=== PATIENT | female | born 1995 | race Hispanic/Latino ===

== ENCOUNTER 2019-03-18 18:50 | Emergency (ER) | payer OTHER ==
[2019-03-18 19:56] LABS: Absolute Lymphocytes (CBC) 1.7 K/uL (0.7-4.9); Basophils % 0.6 % (0-1.3); Eosinophils % 1.8 % (0-4.4); Hematocrit 38.3 % (36.0-45.0); Lymphocytes % 16.3 % (15.3-44.8); MPV 9.5 fL (7.6-11.3); Monocytes % 4.9 % (3.3-12.3); RBC Red Blood Cell Count 4.36 M/uL (3.86-4.86)
--- NOTE | 2019-03-18 20:16 | RAD REPORT ---
EXAM DESCRIPTION: US - Transvaginal OB - 03/18/2019 8:08 pm CLINICAL HISTORY: with abdominal pain COMPARISON: None. FINDINGS: The uterus measures 10 x 5 x 7 centimeters. A gestational sac is present within the endom etrium. Within this is a yolk sac and pole with a crown-rump length 1.5 centimeters. Cardiac ac tivity 175 beats per minute. Gestational sac appears normal Right and left ovary normal in size and echotexture An adnexal mass is not noted. No significant free fluid is seen. IMPRESSION: Single live intrauterine with an estimated gestational age 7 weeks 6 days SAKINA October 29, 2019
[2019-03-18 20:18] LABS: Urine Amorphous Sediment 2+ /HPF (NONE SEEN); Urine Bacteria 20-50 /HPF (<20); Urine Culture Reflex Order REFLEXED; Urine Mucus 2+ /HPF (NONE SEEN); Urine RBC <5 /HPF (NONE SEEN)
[2019-03-18 20:45] LABS: BUN Blood Urea Nitrogen 9 mg/dL (7-18); Bicarbonate 25 mmol/L (21-32); Glucose Level 104 mg/dL (74-106); HCG, Quantitative 59891 mIU/mL (1-3); Potassium 3.6 mmol/L (3.5-5.1); Sodium Level 140 mmol/L (136-145)
[2019-03-18 20:51] LABS: Urine Blood NEGATIVE (NEG); Urine Glucose NEGATIVE (NEG); Urine Protein NEGATIVE (NEG); Urine Specific Gravity 1.025 (1.005-1.030); Urine pH 6.5 (5.0-7.0)
[2019-03-18] MEDS ORDERED: CEFTRIAXONE/SWI 1gm 1 GM/10 ML SYR ONE (21:07)
--- NOTE | 2019-03-18 21:16 | ER ---
Nurse's Notes [facility] Name: Beronica Frazier Age: 24 yrs Sex: Female : 1995 Arrival Date: 03/18/2019 Time: 18:54 Bed 27 Private MD: Diagnosis: Urinary tract infection, site not specified Presentation: 03/18 19:04 Presenting complaint: Patient states: Reports being 8 wks , has not seen OB. tl2 Reports lower abdominal pain x 1 week, fever and vomiting. Denies vaginal bleeding. Transition of care: patient was not received from another setting of care. Onset of symptoms was March 11, 2019. Risk Assessment: Do you want to hurt yourself or someone else? Patient reports no desire to harm self or others. Initial Sepsis Screen: Does the patient meet any 2 criteria? No. Patient's initial sepsis screen is negative. Does the patient have a suspected source of infection? No. Patient's initial sepsis screen is negative. Care prior to arrival: None. 19:04 Method Of Arrival: Ambulatory tl2 19:04 Acuity: SUDHAKAR 3 tl2 ORDER ADMINISTRATOR: 19:05 LMP 01/17/2019 tl2 Historical: - Allergies: 19:05 No Known Allergies; tl2 - Home Meds: 19:05 None [Active]; tl2 - PMHx: 19:05 None; tl2 - PSHx: 19:05 None; tl2 - Immunization history:: Adult Immunizations up to date. - Social history:: Smoking status: Patient/guardian denies using tobacco, the patient reports quitting approximately .2 years ago. - Ebola Screening: : No symptoms or risks identified at this time. Screenin:07 Abuse screen: Denies threats or abuse. Denies injuries from another. Nutritional lp1 screening: No deficits noted. Tuberculosis screening: No symptoms or risk factors identified. Fall Risk None identified. Assessment: 19:05 General: Appears in no apparent distress. Behavior is calm, cooperative, appropriate lp1 for age. Pain: Complains of pain in suprapubic area, right inguinal area and left inguinal area Quality of pain is described as aching. Neuro: Level of Consciousness is awake, alert, obeys commands. Cardiovascular: Patient's skin is warm and dry. Respiratory: Respiratory effort is even, unlabored. GI: Abdomen is non-distended, Bowel sounds present X 4 quads. Abdomen is tender to palpation in suprapubic area Reports vomiting. : Denies burning with urination. EENT: No signs and/or symptoms were reported regarding the EENT system. Derm: Skin is pink, warm \T\ dry. Musculoskeletal: No deficits noted. 20:30 Reassessment: Patient appears in no apparent distress at this time. No changes from lp1 previously documented assessment. Patient and/or family updated on plan of care and expected duration. Pain level reassessed. Vital Signs: 19:05 BP 125 / 85; Pulse 76; Resp 18; Temp 98.5(O); Pulse Ox 97% on R/A; Weight 81.65 kg; tl2 Height 5 ft. 4 in. (162.56 cm); Pain 5/10; 21:00 BP 115 / 72; Pulse 80; Resp 16; Pulse Ox 100% on R/A; lp1 19:05 Body Mass Index 30.90 (81.65 kg, 162.56 cm) tl2 ED Course: 18:54 Patient arrived in ED. mr 19:01 Param Perales, SERGIO is PHCP. pm1 19:01 Surya Eli MD is Attending Physician. pm1 19:04 Triage completed. tl2 19:05 Jacqueline Lea, DEWEY is Primary Nurse. lp1 19:05 Arm band placed on right wrist. tl2 19:07 Patient has correct armband on for positive identification. lp1 19:35 Inserted saline lock: 20 gauge in right antecubital area, using aseptic technique. lp1 Blood collected. 20:08 US Transvaginal Ob In Process Unspecified. EDMS 21:04 No provider procedures requiring assistance completed. lp1 21:22 IV discontinued, No redness/swelling at site. Pressure dressing applied. lp1 Administered Medications: 20:55 Drug: Rocephin 1 grams Route: IV; Rate: calculated rate; Site: right antecubital; lp1 21:22 Follow up: Response: No adverse reaction; IV Status: Completed infusion; IV Intake: [id number] Intake: 21:22 IV: 10ml; Total: 10ml. lp1 Outcome: 21:15 Discharge ordered by . pm1 21:23 Discharged to home ambulatory, with family. lp1 21:23 Condition: good 21:23 Discharge instructions given to patient, significant other, Instructed on discharge instructions, follow up and referral plans. medication usage, Demonstrated understanding of instructions, follow-up care, medications, Prescriptions given X 2. 21:23 Patient left the ED. lp1 Signatures: Dispatcher [employer] ANAI GardunoZena lozada VenuJacqueline RN RN lp1 Param Perales NP SURVEY AND MAPPING TECHNICIAN pm1 Michelle Parekh RN RN tl2
--- NOTE | 2019-03-18 21:16 | EDPHYS ---
Physician Documentation [facility] Name: Beronica Frazier Age: 24 yrs Sex: Female : 1995 Arrival Date: 03/18/2019 Time: 18:54 Bed 27 Private MD: ED Physician Surya Eli HPI: 03/18 20:18 This 24 yrs old Female presents to ER via Ambulatory with complaints of 8 wks pm1 , Abdominal Pain. 20:18 The patient presents with pelvic pain. Onset: The symptoms/episode began/occurred 1 pm1 week(s) ago. Modifying factors: The symptoms are alleviated by nothing, the symptoms are aggravated by nothing. Associated signs and symptoms: Pertinent positives: nausea, vomiting, subjective fever. Severity of symptoms: in the emergency department the symptoms are unchanged. The patient is sexually active. The patient has not experienced similar symptoms in the past. The patient has not recently seen a physician. FORM [employer]TER [employer] [address] FORMS: 19:05 LMP 01/17/2019 tl2 Historical: - Allergies: 19:05 No Known Allergies; tl2 - Home Meds: 19:05 None [Active]; tl2 - PMHx: 19:05 None; tl2 - PSHx: 19:05 None; tl2 - Immunization history:: Adult Immunizations up to date. - Social history:: Smoking status: Patient/guardian denies using tobacco, the patient reports quitting approximately .2 years ago. - Ebola Screening: : No symptoms or risks identified at this time. ROS: 20:18 Positive for flank pain, Negative for burning with urination, vaginal bleeding, pm1 vaginal discharge. 20:18 Constitutional: Negative for fever, chills, and weight loss, Eyes: Negative for injury, pain, redness, and discharge, ENT: Negative for injury, pain, and discharge, Neck: Negative for injury, pain, and swelling, Cardiovascular: Negative for chest pain, palpitations, and edema, Respiratory: Negative for shortness of breath, cough, wheezing, and pleuritic chest pain. 20:18 MS/Extremity: Negative for injury and deformity, Skin: Negative for injury, rash, and discoloration, Neuro: Negative for headache, weakness, numbness, tingling, and seizure. 20:18 Abdomen/GI: Positive for nausea, constipation, Negative for vomiting, diarrhea. 20:18 Abdomen/GI: Positive for abdominal pain, of the suprapubic area. pm1 Exam: 20:18 Constitutional: This is a well developed, well nourished patient who is awake, alert, pm1 and in no acute distress. Head/Face: Normocephalic, atraumatic. Eyes: Pupils equal round and reactive to light, extra-ocular motions intact. Lids and lashes normal. Conjunctiva and sclera are non-icteric and not injected. Cornea within normal limits. Periorbital areas with no swelling, redness, or edema. ENT: Nares patent. No nasal discharge, no septal abnormalities noted. Tympanic membranes are normal and external auditory canals are clear. Oropharynx with no redness, swelling, or masses, exudates, or evidence of obstruction, uvula midline. Mucous membranes moist. Neck: Trachea midline, no thyromegaly or masses palpated, and no cervical lymphadenopathy. Supple, full range of motion without nuchal rigidity, or vertebral point tenderness. No Meningismus. Chest/axilla: Normal chest wall appearance and motion. Nontender with no deformity. No lesions are appreciated. Cardiovascular: Regular rate and rhythm with a normal S1 and S2. No gallops, murmurs, or rubs. Normal PMI, no JVD. No pulse deficits. Respiratory: Lungs have equal breath sounds bilaterally, clear to auscultation and percussion. No rales, rhonchi or wheezes noted. No increased work of breathing, no retractions or nasal flaring. Abdomen/GI: Soft, non-tender, with normal bowel sounds. No distension or tympany. No guarding or rebound. No evidence of tenderness throughout. Back: No spinal tenderness. No costovertebral tenderness. Full range of motion. Skin: Warm, dry with normal turgor. Normal color with no rashes, no lesions, and no evidence of cellulitis. MS/ Extremity: Pulses equal, no cyanosis. Neurovascular intact. Full, normal range of motion. 20:18 Neuro: Orientation: is normal, Motor: is normal. Vital Signs: 19:05 BP 125 / 85; Pulse 76; Resp 18; Temp 98.5(O); Pulse Ox 97% on R/A; Weight 81.65 kg; tl2 Height 5 ft. 4 in. (162.56 cm); Pain 5/10; 21:00 BP 115 / 72; Pulse 80; Resp 16; Pulse Ox 100% on R/A; lp1 19:05 Body Mass Index 30.90 (81.65 kg, 162.56 cm) tl2 MDM: 19:03 Patient medically screened. pm1 20:08 ED course: 7 week 6 days IUP with 175 bpm fht's. pm1 21:14 Data reviewed: vital signs. Data interpreted: Pulse oximetry: on room air is 100 %. pm1 Interpretation: normal. Counseling: I had a detailed discussion with the patient and/or guardian regarding: the historical points, exam findings, and any diagnostic results supporting the discharge/admit diagnosis, lab results, radiology results, the need for outpatient follow up, to return to the emergency department if symptoms worsen or persist or if there are any questions or concerns that arise at home. 03/18 19:20 Order name: Quantitative Hcg; Complete Time: 20:48 pm03/18 19:20 Order name: Abo/rh Typing; Complete Time: 20:48 pm03/18 19:20 Order name: Basic Metabolic Panel; Complete Time: 20:48 pm03/18 19:20 Order name: CBC with Diff; Complete Time: 20:00 pm03/18 19:21 Order name: Urine Dipstick--Ancillary (enter results); Complete Time: 21:13 2 03/18 19:21 Order name: Urine --Ancillary (enter results); Complete Time: 21:13 03/18 19:02 Order name: Urine Dipstick-Ancillary (obtain specimen); Complete Time: 19:23 pm03/18 19:02 Order name: Urine Test (obtain specimen); Complete Time: 19:23 pm03/18 19:20 Order name: IV Saline Lock; Complete Time: 19:49 pm03/18 19:20 Order name: Labs collected and sent; Complete Time: 19:49 pm03/18 19:20 Order name: US Transvaginal Ob; Complete Time: 20:18 pm03/18 19:33 Order name: Urine Microscopic Only; Complete Time: 20:48 pm03/18 20:20 Order name: Urine Culture EDME 03/18 19:20 Order name: NPO; Complete Time: 19:49 pm1 Administered Medications: 20:55 Drug: Rocephin 1 grams Route: IV; Rate: calculated rate; Site: right antecubital; lp1 21:22 Follow up: Response: No adverse reaction; IV Status: Completed infusion; IV Intake: [id number] Disposition: 03/19 16:45 Co-signature as Attending Physician, Surya Eli MD. Disposition: 03/18/19 21:15 Discharged to Home. Impression: Urinary tract infection, site not specified. - Condition is Stable. - Discharge Instructions: and Urinary Tract Infection. - Prescriptions for Macrobid 100 mg Oral Capsule - take 1 capsule by ORAL route every 12 hours for 10 days; 20 capsule. promethazine 25 mg Oral Tablet - take 1 tablet by ORAL route every 6 hours As needed; 20 tablet. - Medication Reconciliation Form, Thank You Letter, Antibiotic Education, Prescription Opioid Use form. - Follow up: Emergency Department; When: As needed; Reason: Worsening of condition. Follow up: Private Physician; When: 2 - 3 days; Reason: Recheck today's complaints, Continuance of care, Re-evaluation by your physician. - Problem is new. - Symptoms have improved. Signatures: Dispatcher [employer] EDMS Jacqueline Lea RN RN lp1 Param Perales NP PUSHER RUNNER pm1 Michelle Parekh RN RN tl2 Surya Eli MD MD Corrections: (The following items were deleted from the chart) 03/18 21:23 21:15 03/18/2019 21:15 Discharged to Home. Impression: Urinary tract infection, site lp1 not specified. Condition is Stable. Forms are Medication Reconciliation Form, Thank You Letter, Antibiotic Education, Prescription Opioid Use. Follow up: Emergency Department; When: As needed; Reason: Worsening of condition. Follow up: Private Physician; When: 2 - 3 days; Reason: Recheck today's complaints, Continuance of care, Re-evaluation by your physician. Problem is new. Symptoms have improved. pm1
== END 2019-03-18 21:23 | disposition home or self-care (01) ==
LOC: ER 18:50
DX: O23.41 Unspecified infection of urinary tract in pregnancy, first trimester (principal); Z3A.01 Less than 8 weeks gestation of pregnancy
CPT/HCPCS: 36415; 76817; 80048; 81003; 81015; 81025; 84702; 85025; 86900; 86901; 87086; 87088; 96365; 99284; J0696

== ENCOUNTER 2019-04-13 12:54 | Emergency (ER) | payer OTHER ==
[2019-04-13 14:03] LABS: Urine Blood NEGATIVE (NEG); Urine Glucose NEGATIVE (NEG); Urine Protein TRACE (NEG); Urine Specific Gravity 1.025 (1.005-1.030)
[2019-04-13] MEDS ORDERED: ACETAMINOPHEN 500 MG TAB ONE (14:06)
[2019-04-13 14:17] LABS: Absolute Lymphocytes (CBC) 1.2 K/uL (0.7-4.9); Basophils % 0.1 % (0-1.3); Hematocrit 34.8 % (36.0-45.0); Lymphocytes % 14.7 % (15.3-44.8); MPV 9.2 fL (7.6-11.3); RBC Red Blood Cell Count 3.97 M/uL (3.86-4.86)
--- NOTE | 2019-04-13 14:29 | RAD REPORT ---
EXAM DESCRIPTION: US - 1St Trimest Single 1St Fetus - 04/13/2019 2:06 pm CLINICAL HISTORY: fall, cramping;Abd pain COMPARISON: No comparisons FINDINGS: A single gestational sac is seen within the uterus. The shape of the sac is within normal limits for gestational age. Within the sac is a single pole with crown-rump length of 4.3 cm, c orrelating to estimated gestational age of 11 weeks 1 day. Estimated date of delivery is 11/01/2019. Heart rate is 166 BPM. The placenta is not yet developed due to early gestational age. The maternal adnexa and ovaries are within normal limits. Normal Doppler blood flow was demonstrated to both ovaries. IMPRESSION: Single live early intrauterine gestation with estimated gestational age of 11 weeks 1 da y, SAKINA 11/01/2019. No trauma related abnormality detected.
[2019-04-13 14:31] LABS: BUN Blood Urea Nitrogen 6 mg/dL (7-18); Bicarbonate 24 mmol/L (21-32); Glucose Level 106 mg/dL (74-106); Potassium 3.5 mmol/L (3.5-5.1); Sodium Level 140 mmol/L (136-145)
[2019-04-13 14:58] LABS: HCG, Quantitative 50284 mIU/mL (1-3)
--- NOTE | 2019-04-13 15:43 | ER ---
Nurse's Notes [facility] Name: Beronica Frazier Age: 24 yrs Sex: Female : 12/26/1994 Arrival Date: 04/13/2019 Time: 12:56 Bed 27 Private MD: Diagnosis: Abdominal and pelvic pain; related conditions, unspecified;11 weeks gestation of ;Other slipping, tripping and stumbling and falls Presentation: 04/13 13:03 Presenting complaint: Patient states: Pt reports she was taking a shower three hours ss ago when she slipped and fell. C/o pain to L side of body and is concerned because she is 12 weeks and is having mild cramping. Denies vaginal bleeding. Transition of care: patient was not received from another setting of care. Onset of symptoms was April 13, 2019. Risk Assessment: Do you want to hurt yourself or someone else? Patient reports no desire to harm self or others. Initial Sepsis Screen: Does the patient meet any 2 criteria? No. Patient's initial sepsis screen is negative. Does the patient have a suspected source of infection? No. Patient's initial sepsis screen is negative. Care prior to arrival: None. 13:03 Method Of Arrival: Ambulatory ss 13:03 Acuity: SUDHAKAR 3 ss REMOTE SENSING SPECIALIST: 16:11 lmp unknown mg2 Historical: - Allergies: 13:04 No Known Allergies; ss - Home Meds: 13:04 None [Active]; ss - PMHx: 13:04 None; ss - PSHx: 13:04 None; ss - Immunization history:: Adult Immunizations unknown. - Social history:: Smoking status: Patient/guardian denies using tobacco. - Ebola Screening: : Patient denies exposure to infectious person Patient denies travel to an Ebola-affected area in the 21 days before illness onset. Screenin:14 Abuse screen: Denies threats or abuse. Denies injuries from another. Nutritional mg2 screening: No deficits noted. Tuberculosis screening: No symptoms or risk factors identified. Fall Risk Fall in past 12 months (25 points). Assessment: 13:05 Reassessment: Patient is eating snack during triage and states that she is just worried ss about the baby. 13:36 General: Appears in no apparent distress. comfortable, Behavior is calm, cooperative. mg2 Pain: Complains of pain in abdomen Pain does not radiate. Pain currently is 2 out of 10 on a pain scale. Quality of pain is described as crampy, Pain began suddenly, 3 hours ago. Is intermittent. Neuro: Level of Consciousness is awake, alert, obeys commands, Oriented to person, place, time, situation. Cardiovascular: Capillary refill < 3 seconds Patient's skin is warm and dry. Respiratory: Airway is patent Respiratory effort is even, unlabored, Respiratory pattern is regular, symmetrical. GI: Reports lower abdominal pain. : Urine is clear. EENT: No signs and/or symptoms were reported regarding the EENT system. Derm: Skin is intact, is healthy with good turgor, Skin is pink, warm \T\ dry. normal. Musculoskeletal: Circulation, motion, and sensation intact. Capillary refill < 3 seconds. 16:12 Reassessment: Patient denies pain at this time. Patient states feeling better. mg2 Vital Signs: 13:04 BP 117 / 68; Pulse 88; Resp 14; Temp 97.8(TE); Pulse Ox 99% on R/A; Weight 86.64 kg; ss Height 5 ft. 5 in. (165.10 cm); Pain 6/10; 15:00 BP 115 / 70; Pulse 80; Resp 18; Pulse Ox 100% on R/A; mg2 16:11 BP 120 / 78; Pulse 80; Resp 18; Temp 98; Pulse Ox 100% on R/A; Pain 0/10; mg2 13:04 Body Mass Index 31.78 (86.64 kg, 165.10 cm) ss Vitals: 13:26 Heart Tones 160 bpm. mg2 ED Course: 12:56 Patient arrived in ED. as 13:04 Triage completed. ss 13:04 Arm band placed on right wrist. ss 13:13 Mick Shirley, DEWEY is Primary Nurse. mg2 13:34 Sameer Melgar MD is Attending Physician. kdr 13:37 Patient has correct armband on for positive identification. mg2 13:37 No provider procedures requiring assistance completed. mg2 14:10 1St Trimest Single 1St Fetus In Process Unspecified. EDMS 14:12 Inserted saline lock: 20 gauge in right antecubital area, using aseptic technique. mg2 Blood collected. by BANG Horta TEch. 16:12 IV discontinued, intact, bleeding controlled, No redness/swelling at site. Pressure mg2 dressing applied. Administered Medications: No medications were administered Outcome: 15:42 Discharge ordered by . kdr 16:12 Discharged to home ambulatory, with family. mg2 16:12 Condition: stable 16:12 Discharge instructions given to patient, family, Instructed on discharge instructions, follow up and referral plans. Demonstrated understanding of instructions, follow-up care. 16:13 Patient left the ED. mg2 Signatures: Dispatcher [employer] EDMS Sameer Melgar MD MD kdr Jenny Wang Shelby, RN RN Mick Shirley RN RN mg2 Corrections: (The following items were deleted from the chart) 14:12 13:37 Patient did not have IV access during this emergency room visit. mg2 mg2
--- NOTE | 2019-04-13 15:43 | EDPHYS ---
Physician Documentation [facility] Name: Beronica Frazier Age: 24 yrs Sex: Female : 12/26/1994 Arrival Date: 04/13/2019 Time: 12:56 Bed 27 Private MD: ED Physician Sameer Melgar HPI: 04/13 15:46 This 24 yrs old Female presents to ER via Ambulatory with complaints of Fall kdr Injury. 15:46 Details of fall: The patient fell from an upright position, while standing. Onset: The kdr symptoms/episode began/occurred acutely, just prior to arrival. Associated injuries: The patient sustained injury to the abdomen. 15:47 Associated injuries: The patient sustained injury to the abdomen, specifically the kdr posterior aspect of left lateral abdomen and anterior aspect of left lateral abdomen. Severity of symptoms: At their worst the symptoms were mild, in the emergency department the symptoms are unchanged. The patient has not experienced similar symptoms in the past. The patient has been recently seen by a physician: the patient's primary care provider. 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 - Social history:: Smoking status: Patient/guardian denies using tobacco. - Ebola Screening: : Patient denies exposure to infectious person Patient denies travel to an Ebola-affected area in the 21 days before illness onset. ROS: 15:47 Constitutional: Negative for fever, chills, and weight loss, Eyes: Negative for injury, kdr pain, redness, and discharge, Neck: Negative for injury, pain, and swelling, Cardiovascular: Negative for chest pain, palpitations, and edema, Respiratory: Negative for shortness of breath, cough, wheezing, and pleuritic chest pain, Back: Negative for injury and pain, : Negative for injury, bleeding, discharge, and swelling, MS/Extremity: Negative for injury and deformity, Skin: Negative for injury, rash, and discoloration, Neuro: Negative for headache, weakness, numbness, tingling, and seizure activity. Psych: Negative for depression, anxiety, suicide ideation, homicidal ideation, and hallucinations, Allergy/Immunology: Negative for hives, rash, and allergies, Endocrine: Negative for neck swelling, polydipsia, polyuria, polyphagia, and marked weight changes, Hematologic/Lymphatic: Negative for swollen nodes, abnormal bleeding, and unusual bruising. 15:47 Abdomen/GI: Positive for abdominal pain, of the anterior aspect of left lateral abdomen, Negative for nausea, vomiting, and diarrhea, abdominal distension, anorexia, dysphagia, hematemesis. Exam: 15:47 Constitutional: This is a well developed, well nourished patient who is awake, alert, kdr and in no acute distress. Head/Face: Normocephalic, atraumatic. Eyes: Pupils equal round and reactive to light, extra-ocular motions intact. Lids and lashes normal. Conjunctiva and sclera are non-icteric and not injected. Cornea within normal limits. Periorbital areas with no swelling, redness, or edema. Neck: Trachea midline, no thyromegaly or masses palpated, and no cervical lymphadenopathy. Supple, full range of motion without nuchal rigidity, or vertebral point tenderness. No Meningismus. Chest/axilla: Normal chest wall appearance and motion. Nontender with no deformity. No lesions are appreciated. Cardiovascular: Regular rate and rhythm with a normal S1 and S2. No gallops, murmurs, or rubs. Normal PMI, no JVD. No pulse deficits. Respiratory: Lungs have equal breath sounds bilaterally, clear to auscultation and percussion. No rales, rhonchi or wheezes noted. No increased work of breathing, no retractions or nasal flaring. Back: No spinal tenderness. No costovertebral tenderness. Full range of motion. Skin: Warm, dry with normal turgor. Normal color with no rashes, no lesions, and no evidence of cellulitis. MS/ Extremity: Pulses equal, no cyanosis. Neurovascular intact. Full, normal range of motion. Neuro: Awake and alert, GCS 15, oriented to person, place, time, and situation. Cranial nerves II-XII grossly intact. Motor strength 5/5 in all extremities. Sensory grossly intact. Cerebellar exam normal. Normal gait. Psych: Awake, alert, with orientation to person, place and time. Behavior, mood, and affect are within normal limits. 15:47 Abdomen/GI: Inspection: abdomen appears normal, Bowel sounds: active, Palpation: soft, mild abdominal tenderness, in the anterior aspect of left lateral abdomen. Vital Signs: 13:04 BP 117 / 68; Pulse 88; Resp 14; Temp 97.8(TE); Pulse Ox 99% on R/A; Weight 86.64 kg; ss Height 5 ft. 5 in. (165.10 cm); Pain 6/10; 15:00 BP 115 / 70; Pulse 80; Resp 18; Pulse Ox 100% on R/A; mg2 16:11 BP 120 / 78; Pulse 80; Resp 18; Temp 98; Pulse Ox 100% on R/A; Pain 0/10; mg2 13:04 Body Mass Index 31.78 (86.64 kg, 165.10 cm) ss MDM: 15:42 Patient medically screened. kdr 15:47 Data reviewed: vital signs, nurses notes, lab test result(s), radiologic studies. kdr Counseling: I had a detailed discussion with the patient and/or guardian regarding: the historical points, exam findings, and any diagnostic results supporting the discharge/admit diagnosis, lab results, radiology results, the need for outpatient follow up. 04/13 13:32 Order name: Urine Dipstick--Ancillary (enter results); Complete Time: 15:30 bd 04/13 13:32 Order name: Urine --Ancillary (enter results); Complete Time: 15:30 bd 04/13 13:35 Order name: Quantitative Hcg; Complete Time: 15:30 kdr 04/13 13:35 Order name: Abo/rh Typing; Complete Time: 15:30 kdr 04/13 13:35 Order name: Basic Metabolic Panel; Complete Time: 15:30 kdr 04/13 13:35 Order name: CBC with Diff; Complete Time: 15:30 kdr 04/13 13:34 Order name: FHT's; Complete Time: 13:34 mg2 04/13 13:35 Order name: IV Saline Lock; Complete Time: 13:57 kdr 04/13 13:35 Order name: Labs collected and sent; Complete Time: 13:58 kdr 04/13 13:35 Order name: NPO; Complete Time: 13:58 kdr 04/13 13:35 Order name: Urine Dipstick-Ancillary (obtain specimen); Complete Time: 13:58 kdr 04/13 14:10 Order name: 1St Trimest Single 1St Fetus; Complete Time: 15:30 EDMS Administered Medications: No medications were administered Disposition: 04/13/19 15:42 Discharged to Home. Impression: Abdominal and pelvic pain, related conditions, unspecified, 11 weeks gestation of , Other slipping, tripping and stumbling and falls. - Condition is Stable. - Discharge Instructions: First Trimester of , Ebwi-[id number], Abdominal Pain, Adult, Llfx-yu-[id number], What Do I Need to Know About Injuries During ?. - Medication Reconciliation Form, Thank You Letter form. - Follow up: Private Physician; When: 2 - 3 days; Reason: If symptoms return, Further diagnostic work-up, Recheck today's complaints, Continuance of care, Re-evaluation by your physician. - Problem is new. - Symptoms have improved. Signatures: Dispatcher [employer] [facility] Sameer Melgar MD MD kdr Tami Ordonez RN RN ss Mick Shirley RN RN mg2 Corrections: (The following items were deleted from the chart) 14:10 13:38 Transvaginal Ob+US.RAD.BRZ ordered. [facility] EDCO 16:13 15:42 04/13/2019 15:42 Discharged to Home. Impression: Abdominal and pelvic pain; mg2 related conditions, unspecified; 11 weeks gestation of ; Other slipping, tripping and stumbling and falls. Condition is Stable. Forms are Medication Reconciliation Form, Thank You Letter, Antibiotic Education, Prescription Opioid Use. Follow up: Private Physician; When: 2 - 3 days; Reason: If symptoms return, Further diagnostic work-up, Recheck today's complaints, Continuance of care, Re-evaluation by your physician. Problem is new. Symptoms have improved. kdr
== END 2019-04-13 16:13 | disposition home or self-care (01) ==
LOC: ER 12:54
DX: O26.891 Other specified pregnancy related conditions, first trimester (principal); R10.2 Pelvic and perineal pain; Z3A.11 11 weeks gestation of pregnancy; W18.2XXA Fall in (into) shower or empty bathtub, initial encounter
CPT/HCPCS: 36415; 76801; 80048; 81003; 81025; 84702; 85025; 86900; 86901; 99284

== ENCOUNTER 2019-04-18 15:31 | Emergency (ER) | payer OTHER, SELFPAY ==
--- NOTE | 2019-04-18 16:56 | EDPHYS ---
Physician Documentation [facility] Name: Beronica Frazier Age: 24 yrs Sex: Female : 12/26/1994 Arrival Date: 04/18/2019 Time: 15:33 Bed 8 Private MD: BANG Physician Jasiel Stallworth Historical: - Allergies: 04/18 15:35 No Known Allergies; sv - PMHx: 15:35 None; sv - PSHx: 15:35 None; sv - Immunization history:: Adult Immunizations unknown. - Social history:: Smoking status: Patient/guardian denies using tobacco. - Ebola Screening: : No symptoms or risks identified at this time. Exam: 16:20 Constitutional: The patient appears in no acute distress, alert, awake, non-toxic, well cp developed, well nourished. 16:20 Head/Face: Normocephalic, atraumatic. cp 16:20 Eyes: Periorbital structures: appear normal, Conjunctiva: normal, no exudate, no injection, Lids and lashes: appear normal, bilaterally. 16:20 ENT: External ear(s): are unremarkable, Ear canal(s): are normal, clear, TM's: bulging, is not appreciated, bilaterally, dullness, bilaterally, erythema, is not appreciated, bilaterally, Nose: nasal drainage, that is minimal, Mouth: Lips: moist, Oral mucosa: moist, Posterior pharynx: Airway: no evidence of obstruction, patent, Tonsils: no enlargement, no exudate, erythema, that is mild, exudate, is not appreciated. 16:20 Neck: ROM/movement: is normal, is supple, without pain, no range of motions limitations, no meningismus, no nuchal rigidity, Lymph nodes: no appreciated lymphadenopathy. 16:20 Chest/axilla: Inspection: normal. 16:20 Cardiovascular: Rate: normal, Rhythm: regular. 16:20 Respiratory: the patient does not display signs of respiratory distress, Respirations: normal, no use of accessory muscles, no retractions, no splinting, no tachypnea, labored breathing, is not present, Breath sounds: stridor, is not appreciated, + upper airway congestion. wheezing: is not appreciated. 16:20 Abdomen/GI: Exam negative for discomfort, distension, guarding, Inspection: abdomen appears normal. 16:20 Back: pain, is absent, ROM is normal. Vital Signs: 15:35 BP 115 / 66; Pulse 80; Resp 16; Temp 98.2; Pulse Ox 100% ; Weight 86.18 kg; sv 17:12 BP 102 / 65; Pulse 77; Resp 18; Pulse Ox 100% on R/A; aj1 MDM: 15:[address] [facility] 16:25 Differential diagnosis: viral Infection, bacterial infection, bronchitis, pneumonia cp influenza, strep throat. 16:55 Data reviewed: vital signs, nurses notes, lab test result(s), and as a result, I will cp discharge patient. 04/18 15:53 Order name: Strep cp 04/18 15:53 Order name: Influenza Screen (a \T\ B) 04/18 15:53 Order name: FHT's; Complete Time: 16:10 04/18 16:29 Order name: Throat Culture EDMS Administered Medications: No medications were administered Disposition: 04/19 07:23 Co-signature as Attending Physician, Jasiel Stallworth MD I agree with the assessment and [facility] plan of care. Disposition: 04/18/19 16:56 Discharged to Home. Impression: Acute upper respiratory infection, unspecified. - Condition is Stable. - Discharge Instructions: Upper Respiratory Infection, Adult, First Trimester of . - Medication Reconciliation Form, Thank You Letter, Antibiotic Education, Prescription Opioid Use form. - Follow up: Private Physician; When: 2 - 3 days; Reason: Worsening of condition. - Problem is new. - Symptoms have improved. - Notes: may take plain Robitussin, acetaminophen for pain and Sudafed Addendum: 05/05/2019 06:43 Addendum: HPI: 24 y/o female with c/o cough and congestion times 5 days. c p 06:50 Addendum: ROS: negative for fever. positive for body aches, cough, nasal congestion. c p negative for vomiting, diarrhea. All other review of systems negative. Signatures: Dispatcher [employer] EDMS Brit Payton RN RN aj1 Ena Darling RN RN sv Anderson, Corey, MD MD cha Page, Corey, PA PA Corrections: (The following items were deleted from the chart) 04/18 17:13 16:56 04/18/2019 16:56 Discharged to Home. Impression: Acute upper respiratory aj1 infection, unspecified. Condition is Stable. Forms are Medication Reconciliation Form, Thank You Letter, Antibiotic Education, Prescription Opioid Use. Follow up: Private Physician; When: 2 - 3 days; Reason: Worsening of condition. Problem is new. Symptoms have improved. cp
--- NOTE | 2019-04-18 16:56 | ER ---
Nurse's Notes [facility] Name: Beronica Frazier Age: 24 yrs Sex: Female : 12/26/1994 Arrival Date: 04/18/2019 Time: 15:33 Bed 8 Private MD: Diagnosis: Acute upper respiratory infection, unspecified Presentation: 04/18 15:34 Presenting complaint: Patient states: cough, body aches, congestion x 5 days; pt is 13 sv weeks . Transition of care: patient was not received from another setting of care. Onset of symptoms was April 13, 2019. Risk Assessment: Do you want to hurt yourself or someone else? Patient reports no desire to harm self or others. Care prior to arrival: None. 15:34 Method Of Arrival: Ambulatory sv 15:34 Acuity: SUDHAKAR 4 sv 17:12 Initial Sepsis Screen: Does the patient meet any 2 criteria? No. Patient's initial aj1 sepsis screen is negative. Does the patient have a suspected source of infection? Yes: Productive cough/pneumonia. Historical: - Allergies: 15:35 No Known Allergies; sv - PMHx: 15:35 None; sv - PSHx: 15:35 None; sv - Immunization history:: Adult Immunizations unknown. - Social history:: Smoking status: Patient/guardian denies using tobacco. - Ebola Screening: : No symptoms or risks identified at this time. Screenin:10 Abuse screen: Denies threats or abuse. Denies injuries from another. Nutritional aj1 screening: No deficits noted. Tuberculosis screening: No symptoms or risk factors identified. 17:12 Fall Risk None identified. aj1 Assessment: 16:10 General: Appears in no apparent distress. comfortable, Behavior is calm, cooperative, aj1 appropriate for age. Pain: Denies pain. Neuro: Level of Consciousness is awake, alert, obeys commands, Oriented to person, place, time, situation. Cardiovascular: Patient's skin is warm and dry. Respiratory: Reports cough that is persistent Airway is patent Respiratory effort is even, unlabored, Respiratory pattern is regular, symmetrical, Breath sounds are clear bilaterally. GI: No signs and/or symptoms were reported involving the gastrointestinal system. : No signs and/or symptoms were reported regarding the genitourinary system. EENT: Reports nasal congestion nasal discharge. Derm: No signs and/or symptoms reported regarding the dermatologic system. Skin is pink, warm \T\ dry. normal. Musculoskeletal: No signs and/or symptoms reported regarding the musculoskeletal system. Circulation, motion, and sensation intact. 17:12 Reassessment: Patient appears in no apparent distress at this time. No changes from aj1 previously documented assessment. Patient and/or family updated on plan of care and expected duration. Pain level reassessed. Patient is alert, oriented x 3, equal unlabored respirations, skin warm/dry/pink. Vital Signs: 15:35 BP 115 / 66; Pulse 80; Resp 16; Temp 98.2; Pulse Ox 100% ; Weight 86.18 kg; sv 17:12 BP 102 / 65; Pulse 77; Resp 18; Pulse Ox 100% on R/A; aj1 Vitals: 16:09 Heart Tones 158. aj1 ED Course: 15:33 Patient arrived in ED. as 15:35 Triage completed. sv 15:37 Arm band placed on. sv 15:38 Jasiel De La O PA is PHCP. cp 15:38 Jasiel Stallworth MD is Attending Physician. cp 16:09 Brit Payton RN is Primary Nurse. aj1 16:10 Patient has correct armband on for positive identification. Bed in low position. Call aj1 light in reach. Side rails up X 1. 16:10 No provider procedures requiring assistance completed. aj1 17:12 Patient did not have IV access during this emergency room visit. aj1 Administered Medications: No medications were administered Outcome: 16:56 Discharge ordered by MD. cp 17:12 Discharged to home ambulatory. aj1 17:12 Condition: good 17:12 Discharge instructions given to patient, Instructed on discharge instructions, follow up and referral plans. Demonstrated understanding of instructions, follow-up care. 17:13 Patient left the ED. aj1 Signatures: Brit Payton RN RN aj1 Ena Darling RN RN sv Martinez, Amelia as Rocío Burgess RN RN aa5 Jasiel De La O PA PA cp Corrections: (The following items were deleted from the chart) 17:11 15:46 Rocío Burgess RN is Primary Nurse. aa5 aa5 17:11 16:09 Primary Nurse role handed off by Rocío Burgess RN aj1 aa5
== END 2019-04-18 17:13 | disposition home or self-care (01) ==
LOC: ER 15:31
DX: O26.891 Other specified pregnancy related conditions, first trimester (principal); Z3A.13 13 weeks gestation of pregnancy
CPT/HCPCS: 87070; 87081; 87804; 99283

== ENCOUNTER 2019-05-10 23:27 | Emergency (ER) | payer SELFPAY ==
--- OUTSIDE RECORDS SUMMARY | 2019-05-10 23:30 | XMS REPORT | Summary of Care ---
:12/26/1994 Author Organization [facility] Address [address] [place] [address] Care Team Providers Name Role Phone Analisa Saeed TECHNOLOGY SALES REPRESENTATIVE Primary Care Provider Reason for Visit Reason Comments Assessment Responding to [employer] message Encounter Details Date Type Department Care Team Description 05/03/2019 Telephone [facility]- Analisa Saeed, Assessment ( Responding [facility] to [employer] message) [address] [facility] [address] [address] [place] [address] [phone] Allergies No Known Allergiesdocumented as of this encounter (statuses as of 05/05/2019) Medications Medication Sig Dispensed Refills Start Date End Date Status vit Take 1 Packet by 30 Each 6 03/31/2019 Active 01-vcdh-mitce-dha mouth daily. (SELECT-OB + DHA) 29 mg iron-1 mg -250 mg combo packIndications: High-risk in first trimester proMETHazine 25 mg Take 1 tablet by 30 tablet 3 03/31/2019 Active tabletIndications: mouth every 4 Nausea and vomiting (four) hours as during prior needed for Nausea to 22 weeks gestation and Vomiting (N/V). documented as of this encounter (statuses as of 05/05/2019) Active Problems Problem Noted Date Ana rash of groin 04/28/2019 Nausea and vomiting during prior to 22 weeks gestation 03/31/2019 Susceptible to varicella (non-immune), currently 03/04/2019 Rubella non-immune status, antepartum 03/04/2019 Cessation of tobacco use in previous 12 months 03/03/2019 Tubal ligation evaluation 03/03/2019 Multiparity 03/03/2019 High-risk in first trimester 03/03/2019 Obesity affecting 02/09/2019 Estimated Date of Delivery Comments Yes 10/22/2019 Based on last menstrual period of 01/15/2019 (Approximate) documented as of this encounter (statuses as of 05/05/2019) Resolved Problems Problem Noted Date Resolved Date Encounter for tobacco use cessation counseling 02/09/2019 03/03/2019 Nexplanon insertion 08/23/2016 02/09/2019 Well woman exam 08/09/2016 03/03/2019 Other general counseling and advice for contraceptive 08/09/2016 08/22/2017 management Over weight 08/09/2016 08/22/2017 documented as of this encounter (statuses as of 05/05/2019) Immunizations Name Administration Dates Next Due TDAP (ADACEL) VACCINE 09/22/2010 documented as of this encounter Social History Tobacco Use Types Packs/Day Years Used Date Former Smoker Cigarettes 0.05 08/22/2010 - 02/26/2019 Smokeless Tobacco: Never Used Comments: 1 cigarrete/day Alcohol Use Drinks/Week oz/Week Comments No 0 Standard drinks or equivalent 0.0 Estimated Date of Delivery Comments Yes 10/22/2019 Based on last menstrual period of 01/15/2019 (Approximate) Sex Assigned at Date Recorded Not on file Job Start Date Occupation Industry Not on file Not on file Not on file Travel History Travel Start Travel End No recent travel history available. documented as of this encounter Last Filed Vital Signs Not on filedocumented in this encounter Plan of Treatment Date Type Specialty Care Team Description 05/26/2019 Routine Visit [facility]ell[facility] Analisa Saeed, TECHNOLOGY SALES REPRESENTATIVE [address] [place], [place] [id number] 05/27/2019 Marine Safety Officer Visit Maternal Medicine Health Maintenance Due Date Last Done Comments VARICELLA VACCINES (1 of 2 12/27/2007 - 13+ 2-dose series) INFLUENZA VACCINE 05/23/2019 HPV VACCINES (1 - Female 02/16/2020 Postponed from 3-dose series) 12/26/2009 (Insurance / Financial) CHLAMYDIA SCREENING 03/03/2020 03/03/2019, 02/09/2019, 08/22/2017, Additional history exists DTaP,Tdap,and Td Vaccines 09/22/2020 09/22/2010 (2 - Td) PAP SMEAR 02/09/2022 02/09/2019, 08/09/2016 PNEUMOCOCCAL 0-64 YEARS Aged Out No longer eligible COMBINED SERIES based on patient's age to complete this topic documented as of this encounter Goals Goal Patient Goal Associated Recent Patient-Stated? Author Type Problems Progress Quit using Tobacco Use tere Negrete RN (cigarettes, smokeless, etc) documented as of this encounter Results Not on filedocumented in this encounter Insurance Payer Benefit Plan Subscriber ID Effective Phone Address Type / Group Dates CHIP MA[employer]EN CH[employer] MOM CHIP [id number] 2019-Prese CHIP Maureen [employer] [id number] nt HEALTH CHOICE FPL [facility] TITLE V TITLE V [id number] 2019-Pres [address] [facility] 0-100% [place] [address] RM[employer]P FAMILY FAMILY [id number] 2019-Pres [address] Agency [employer] [employer], [place] 0-100% [phone] documented as of this encounter Advance Directives Name Relationship Healthcare Agent Relationship Communication Trino Alejandre Spouse Primary healthcare agent
--- OUTSIDE RECORDS SUMMARY | 2019-05-10 23:30 | XMS REPORT | Summary of Care ---
:12/26/1994 Author Organization [facility] Address [address] [place] [address] Care Team Providers Name Role Phone Analisa Saeed Primary Care Provider Encounter Details Date Type Department Care Team Description 03/23/2019 Patient Secure Msg [facility] MyChart Messages Doctor Unassigned, [address] [place] [address] [place] [address] [place] [address] [place] [address] Allergies No Known Allergiesdocumented as of this encounter (statuses as of 04/24/2019) Medications No known medicationsdocumented as of this encounter (statuses as of 04/24/2019) Active Problems Problem Noted Date Nausea and vomiting during prior to 22 weeks gestation 03/31/2019 Susceptible to varicella (non-immune), currently 03/04/2019 Rubella non-immune status, antepartum 03/04/2019 Cessation of tobacco use in previous 12 months 03/03/2019 Tubal ligation evaluation 03/03/2019 Multiparity 03/03/2019 High-risk in first trimester 03/03/2019 BMI 32.0-32.9,adult 02/09/2019 Estimated Date of Delivery Comments Yes 10/22/2019 Based on last menstrual period of 01/15/2019 (Approximate) documented as of this encounter (statuses as of 04/24/2019) Resolved Problems Problem Noted Date Resolved Date Encounter for tobacco use cessation counseling 02/09/2019 03/03/2019 Nexplanon insertion 08/23/2016 02/09/2019 Well woman exam 08/09/2016 03/03/2019 Other general counseling and advice for contraceptive 08/09/2016 08/22/2017 management Over weight 08/09/2016 08/22/2017 documented as of this encounter (statuses as of 04/24/2019) Immunizations Name Administration Dates Next Due TDAP [...] Treatment Date Type Specialty Care Team Description 04/28/2019 Routine Visit [facility]ell[facility] Analisa Saeed, [facility] [address] [place] [address] [phone] Health Maintenance Due Date Last Done Comments [...] Type Problems Progress Quit using Tobacco Use No tere Cerda RN (cigarettes, smokeless, etc) documented as of this encounter Results Not on filedocumented in this encounter Insurance Payer Benefit Plan / Subscriber ID Effective Phone Address Type Group Dates CHIP MAUREEN CHC MOM CHIP [id number] 2019-Prese CHIP Maureen [employer]EN [id number] FPL nt HEALTH CHOICE RMCHP FAMILY FAMILY [id number] 2019-Pres Amilcar [employer] Agency [employer] [place] ent [id number] 0-100% [place] [address] documented as of this encounter Advance Directives Name Relationship Healthcare Agent Relationship Communication Trino Alejandre Spouse Primary healthcare agent
--- OUTSIDE RECORDS SUMMARY | 2019-05-10 23:30 | XMS REPORT ---
:12/26/1994 [facility] Address [address] [place] [address] Dr. [address] [place] [address] Care Team Providers Name Role Phone Unavailable Unavailable Unavailable Problems This patient has no known problems. Allergies, Adverse Reactions, Alerts This patient has no known allergies or adverse reactions. Medications This patient has no known medications.
--- OUTSIDE RECORDS SUMMARY | 2019-05-10 23:30 | XMS REPORT | Summary of Care ---
:12/26/1994 Author Organization [facility] Address [address] [place] [id number] Care Team Providers Name Role Phone Analisa Saeed Primary Care Provider Reason for Referral (Routine) Status Reason Specialty Diagnoses / Referred By Referred To Procedures Contact Contact New Request Maternal Diagnoses High-risk in second trimester Obesity affecting in second trimester Analisa Saeed Medicine Procedures CONSULT MATERNAL MEDICINE ULTRASOUND Preferred Location: [facility] [address] [facility] [place] [address] Reason for Visit Reason Comments Care Encounter Details Date Type Department Care Team Description 04/28/2019 Routine [facility]- Analisa Saeed High-risk in second trimester (Primary Dx); Visit [facility] Obesity affecting in second trimester; [address] Tubal ligation evaluation; [place], [place]ip[place]; [id number] [place], [place] Susceptible to varicella (non-immune), currently ; [phone] [id number] Rubella non-immune status, antepartum; [phone] Nausea and vomiting during prior to 22 weeks gestation; [phone] Simran rash of groin (Fax) Allergies No Known Allergiesdocumented as of this encounter (statuses as of 04/28/2019) Medications Medication Sig Dispensed Refills Start Date End Date Status vit Take 1 Packet by 30 Each 6 03/31/2019 Active 09-flcg-bufjf-dha mouth daily. (SELECT-OB + DHA) 29 mg iron-1 mg -250 mg combo packIndications: High-risk in first trimester proMETHazine 25 mg Take 1 tablet by 30 tablet 3 03/31/2019 Active tabletIndications: mouth every 4 Nausea and vomiting (four) hours as during prior needed for Nausea to 22 weeks gestation and Vomiting (N/V). documented as of this encounter (statuses as of 04/28/2019) Active Problems Problem Noted Date Simran rash of groin 04/28/2019 Nausea and vomiting [...] as of this encounter (statuses as of 04/28/2019) Resolved Problems Problem Noted Date Resolved Date Encounter for tobacco use cessation counseling 02/09/2019 03/03/2019 Nexplanon insertion 08/23/2016 02/09/2019 Well woman exam 08/09/2016 03/03/2019 Other general counseling and advice for contraceptive 08/09/2016 08/22/2017 management Over weight 08/09/2016 08/22/2017 documented as of this encounter (statuses as of 04/28/2019) Immunizations Name Administration Dates Next Due TDAP [...] of this encounter Last Filed Vital Signs Vital Sign Reading Time Taken Comments Blood Pressure 115/81 04/28/2019 3:10 PM CDT Pulse 89 04/28/2019 3:10 PM CDT Temperature 36.8 C (98.2 F) 04/28/2019 3:10 PM CDT Respiratory Rate 16 04/28/2019 3:10 PM CDT Oxygen Saturation - - Inhaled Oxygen Concentration - - Weight 84.4 kg (186 lb) 04/28/2019 3:10 PM CDT Height 167.6 cm (5' 6") 04/28/2019 3:10 PM CDT Body Mass Index 30.02 04/28/2019 3:10 PM CDT documented in this encounter Progress Notes Analisa Saeed, METER TESTER POLYPHASE - 04/28/2019 3:00 PM CDT Chief complaint: Chief Complaint Patient presents with Care HPI Beronica Klein is a 24 year old female is a @ 14w5d here for visit. Patient's last menstrual period was 01/15/2019 (approximate). Estimated Date of Delivery: 10/22/19 Pt complains of nausea and vomiting, is not taking antiemetics previously discussed. Also complains of rash in grown for 2 weeks. She is taking PNV. She does not yet endorse FM. She denies any ctx/cramping, VB , LOF, MCRAE, visual disturbance, vaginal discharge or dysuria. She denies any foreign travel. She also denies any physical, sexual or emotional abuse. Histories OB History Para Term AB Living 4 2 2 1 2 SAB TAB Ectopic Multiple Live Births 1 2 # Outcome Date GA Lbr Hernan/2nd Weight Sex Delivery Anes PTL Lv 4 Current 3 Term 01/18/16 40w0d 8 lb (3.629 kg) F N[place]AL [place] 2 Term 01/12/12 40w0d 6 lb 6 oz (2.892 kg) M [place] 1 SAB 2011 10w0d Past Medical History: Diagnosis Date Anemia 2014 , not on meds Genital warts 2010 diagnosed in [place] STD (sexually transmitted disease) 2010 genital warts Family History Problem Relation Age of Onset Hypertension Mother Diabetes Maternal Aunt Diabetes Maternal Grandfather Arthritis NoFHx Asthma NoFHx defects NoFHx Breast Cancer NoFHx Colon Cancer NoFHx Ovarian Cancer NoFHx Uterine Cancer NoFHx Cancer NoFHx Depression NoFHx Genetic NoFHx Heart NoFHx High cholesterol NoFHx Mental retardation NoFHx Neurological NoFHx Osteoporosis NoFHx Psychiatry NoFHx Other - see comments NoFHx Family Status Relation Name Status Mo Alive MAunt Alive MGFa NoFHx (Not Specified) Past Surgical History: Procedure Laterality Date DILATION AND CURETTAGE (SHX) Social History Socioeconomic History Marital status: Spouse name: Not on file Number of children: 2 Years of education: Not on file Highest education level: Not on file Occupational History Occupation: none Social Needs Financial resource strain: Not on file Food insecurity: Worry: Not on file Inability: Not on file Transportation needs: Medical: Not on file Non-medical: Not on file Tobacco Use Smoking status: Former Smoker Packs/day: 0.05 Types: Cigarettes Start date: 08/22/2010 Last attempt to quit: 02/26/2019 Years since quittin.1 Smokeless tobacco: Never Used Tobacco comment: 1 cigarrete/day Substance and Sexual Activity Alcohol use: No Alcohol/week: 0.0 oz Drug use: No Sexual activity: Yes Partners: Male control/protection: None, Condom Comment: last sexual intercourse 03/01/2019 Lifestyle Physical activity: Days per week: Not on file Minutes per session: Not on file Stress: Not on file Relationships Social connections: Talks on phone: Not on file Gets together: Not on file Attends synagogue service: Not on file Active member of club or organization: Not on file Attends meetings of clubs or organizations: Not on file Relationship status: Not on file Intimate partner violence: Fear of current or ex partner: Not on file Emotionally abused: Not on file Physically abused: Not on file Forced sexual activity: Not on file Other Topics Concern Not on file Social History Narrative Pt denies current or past physical, sexual or emotional abuse. Patient lives with children and roommate Patient feels safe at home. Social History Substance and Sexual Activity Sexual Activity Yes Partners: Male control/protection: None, Condom Comment: last sexual intercourse 03/01/2019 Labs No new labs and I have reviewed the patient's labs. Radiology Radiology pending. I have reviewed the patient's radiology. dating US reviewed Allergies Beronica has No Known Allergies. Medications Beronica has a current medication list which includes the following prescription(s) : vit 38-qfhu-obbaq-dha and promethazine. Review of Systems Constitutional: Negative for appetite change, fatigue and fever. Eyes: Negative for visual disturbance. Respiratory: Negative. Cardiovascular: Negative for palpitations and leg swelling. Gastrointestinal: Positive for nausea and vomiting. Negative for abdominal pain , constipation and diarrhea. Genitourinary: Negative. Negative for dysuria, vaginal bleeding, vaginal discharge and pelvic pain. Musculoskeletal: Negative. Skin: Positive for rash. Neurological: Negative for dizziness, light-headedness and headaches. Psychiatric/Behavioral: Negative. BP 115/81 (BP Location: Right arm, Patient Position: Sitting, BP CUFF SIZE: Adult Medium) | Pulse 89 | Temp 36.8 C (98.2 F) (Oral) | Resp 16 | Ht 5 ' 6" (1.676 m) | Wt 186 lb (84.4 kg) | LMP 01/15/2019 (Approximate) | BMI 30.02 kg/m Pregravid BMI: 31.7 Physical Exam Vitals reviewed. Constitutional: She is oriented to person, place, and time. She appears well- developed and well-nourished. See flowsheet Cardiovascular: No peripheral edema present. Pulmonary/Chest: Normal inspiratory effort. Abdominal: Abdomen is soft. Neuro/Psychiatric: She has a normal mood and affect. She is oriented to person, place, and time. Skin: Skin normal. Genitourinary Comments: Chaperoned by: Jay Bolanos MA External genitalia: Erythematous rash to right groin c/w simran Assessment/Plan 1. High-risk in second trimester 14w5d FTS normal, MSAFP next visit Anatomy scan ordered - POCT URINALYSIS W/O SPECIFIC GRAVITY - CONSULT MATERNAL MEDICINE ULTRASOUND Preferred Location: [place] 2. Obesity affecting in second trimester The patient is asked to make an attempt to improve diet and exercise patterns to aid in medical management of this problem. - CONSULT MATERNAL MEDICINE ULTRASOUND Preferred Location: [place] 3. Tubal ligation evaluation Sign consents at 28 weeks 4. Multiparity Desires BTL 5. Susceptible to varicella (non-immune), currently Offer vaccine . 6. Rubella non-immune status, antepartum Offer vaccine . 7. Nausea and vomiting during prior to 22 weeks gestation Reviewed vitamin b6, doxylamine and promethazine, has not been taking. 10lb total weight loss. 8. Simran rash of groin Recommend OTC clotrimazole cream Return to clinic in 4 weeks. Discussed treatment options. Medications as ordered. Reviewed patient instructions and provided printed copy. at 14w5d This visit did not involve counseling and coordination that comprised more than 50% of the visit time. documented in this encounter Plan of Treatment Date Type Specialty Care Team Description 05/26/2019 Routine Visit [facility]ell[facility] Analisa Saeed FNP [address] [place] [address] [phone] Health Maintenance Due Date Last Done Comments [...] smokeless, etc) documented as of this encounter Procedures Procedure Name Priority Date/Time Associated Comments Diagnosis POCT URINALYSIS W/O Routine 04/28/2019 3:12 PM High-risk Results for this SPECIFIC GRAVITY CDT in second trimester procedure are in the results section. documented in this encounter Results POCT URINALYSIS W/O SPECIFIC GRAVITY (04/28/2019 3:12 PM CDT) POCT PH U . 5 - 8 mg/dl POCT U LEUK EST . Negative - Negative POCT U NIT . Negative - Negative POCT U PROT Trace Negative - Negative POCT U GLU Neg Negative - Negative POCT U KETONE . Negative - Negative POCT U BLD . Negative - Negative Specimen Urine - URINE, CLEAN CATCH documented in this encounter Visit Diagnoses Diagnosis High-risk in second trimester - Primary Obesity affecting in second trimester Tubal ligation evaluation Other specified pre-operative examination Multiparity Susceptible to varicella (non-immune), currently Supervision of other high-risk Rubella non-immune status, antepartum Other specified complication, antepartum Nausea and vomiting during prior to 22 weeks gestation Simran rash of groin Other candidiasis of other specified sites documented in this encounter Insurance Payer Benefit Plan / Subscriber ID Effective Dates Phone Address Type Group [employer]IP [employer] [facility] CHIP [id number] 2019-Present CHIP [employer] [facility] BENIG[employer] [phone] [employer] CHOICE documented as of this encounter Advance Directives Name Relationship Healthcare Agent Relationship Communication Trino Alejandre Spouse Primary healthcare agent
[2019-05-11] MEDS ORDERED: NA CHLORIDE 0.9% 1,000 ML ONE (00:48)
[2019-05-11] MEDS ORDERED: MORPHINE 2 MG/ML SYR ONE (00:48)
[2019-05-11] MEDS ORDERED: ONDANSETRON 4 MG/2 ML VIAL ONE (00:48)
[2019-05-11 00:52] LABS: Absolute Lymphocytes (CBC) 1.8 K/uL (0.7-4.9); Basophils % 0.2 % (0-1.3); Hematocrit 31.4 % (36.0-45.0); Lymphocytes % 21.1 % (15.3-44.8); MPV 9.3 fL (7.6-11.3); RBC Red Blood Cell Count 3.56 M/uL (3.86-4.86)
[2019-05-11 01:30] LABS: ALT/SGPT 18 U/L (12-78); AST/SGOT 13 U/L (15-37); Albumin 2.9 g/dL (3.4-5.0); Alkaline Phosphatase 68 U/L (45-117); BUN Blood Urea Nitrogen 4 mg/dL (7-18); Bicarbonate 22 mmol/L (21-32); Bilirubin Total 0.2 mg/dL (0.2-1.0); Glucose Level 98 mg/dL (74-106); Potassium 3.5 mmol/L (3.5-5.1); Protein, Total 6.3 g/dL (6.4-8.2); Sodium Level 141 mmol/L (136-145)
--- NOTE | 2019-05-11 02:39 | ER ---
Nurse's Notes [facility] Name: Beronica Frazier Age: 24 yrs Sex: Female : 12/26/1994 Arrival Date: 05/10/2019 Time: 23:31 Bed 16 Private MD: Diagnosis: Headache; related conditions, unspecified, second trimester;Urinary tract infection, site not specified Presentation: 05/10 23:43 Presenting complaint: Patient states: headache X2 days. 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 Transition of care: patient was not received from another setting of care. Onset of symptoms is unknown. Risk Assessment: Do you want to hurt yourself or someone else? Patient reports no desire to harm self or others. Initial Sepsis Screen: Does the patient meet any 2 criteria? No. Patient's initial sepsis screen is negative. Does the patient have a suspected source of infection? No. Patient's initial sepsis screen is negative. Care prior to arrival: None. 23:43 Method Of Arrival: Ambulatory ak1 23:43 Acuity: SUDHAKAR 3 ak1 Triage Assessment: 23:43 General: Appears in no apparent distress. Behavior is calm, cooperative. ak1 CLOUD SERVICES ARCHITECT: 23:42 LMP 01/15/2019, Verified, EDC 10/22/2019, Gestational age from LMP: 16 weeks 4 ak1 days 05/11 00:23 4, Full Term 2, Premature 0, 1, Living 2 sawyer Historical: - Allergies: 05/10 23:43 No Known Allergies; ak1 - Home Meds: 23:43 None [Active]; ak1 - PMHx: 23:43 None; ak1 - PSHx: 23:43 None; ak1 - Immunization history:: Adult Immunizations unknown. - Social history:: Smoking status: Patient/guardian denies using tobacco, the patient reports quitting approximately .2 years ago. - Ebola Screening: : No symptoms or risks identified at this time. - Family history:: not pertinent. Screenin:44 Abuse screen: Denies threats or abuse. Denies injuries from another. Nutritional ak1 screening: No deficits noted. Tuberculosis screening: No symptoms or risk factors identified. Fall Risk None identified. Assessment: 23:58 General: Appears in no apparent distress. uncomfortable, Behavior is calm, cooperative, jd3 appropriate for age. Pain: Complains of pain in head Quality of pain is described as aching. Neuro: Level of Consciousness is awake, alert, obeys commands, Oriented to person, place, time, situation, Reports dizziness, headache. Cardiovascular: Denies chest pain, fatigue, Capillary refill < 3 seconds Patient's skin is warm and dry. Respiratory: Airway is patent Respiratory effort is even, unlabored, Respiratory pattern is regular, symmetrical, Breath sounds are clear bilaterally. Denies cough, shortness of breath. GI: No signs and/or symptoms were reported involving the gastrointestinal system. : No signs and/or symptoms were reported regarding the genitourinary system. EENT: No signs and/or symptoms were reported regarding the EENT system. Derm: Skin is intact, Skin is dry, Skin is normal, Skin temperature is warm. Musculoskeletal: Circulation, motion, and sensation intact. Range of motion: intact in all extremities. 05/11 00:52 Reassessment: Patient appears in no apparent distress at this time. No changes from jd3 previously documented assessment. Patient and/or family updated on plan of care and expected duration. Pain level reassessed. Patient is alert, oriented x 3, equal unlabored respirations, skin warm/dry/pink. 01:31 Reassessment: Patient appears in no apparent distress at this time. Patient and/or jd3 family updated on plan of care and expected duration. Pain level reassessed. Patient is alert, oriented x 3, equal unlabored respirations, skin warm/dry/pink. Patient states feeling better. 02:30 Reassessment: Patient appears in no apparent distress at this time. Patient and/or jd3 family updated on plan of care and expected duration. Pain level reassessed. Patient is alert, oriented x 3, equal unlabored respirations, skin warm/dry/pink. awaiting results. Patient states feeling better. 03:18 Reassessment: Patient appears in no apparent distress at this time. Patient and/or jd3 family updated on plan of care and expected duration. Pain level reassessed. Patient is alert, oriented x 3, equal unlabored respirations, skin warm/dry/pink. Patient denies pain at this time. Patient states feeling better. Vital Signs: 05/10 23:42 BP 115 / 69; Pulse 93; Resp 18; Temp 98.3; Pulse Ox 98% on R/A; Weight 84.37 kg (R); ak1 Height 5 ft. 6 in. (167.64 cm) (R); Pain 7/10; 05/11 01:30 BP 98 / 50; Pulse 82; Resp 16 S; Pulse Ox 100% on R/A; jd3 03:17 BP 118 / 62; Pulse 79; Resp 16 S; Pulse Ox 100% on R/A; Pain 0/10; jd3 05/10 23:42 Body Mass Index 30.02 (84.37 kg, 167.64 cm) ak1 Vitals: 03:16 Heart Tones 180 HR. jd3 ED Course: 05/10 23:31 Patient arrived in ED. ag3 23:42 Arm band placed on Patient placed in an exam room, on a stretcher, Patient notified of ak1 wait time. 23:44 Triage completed. ak1 23:44 Patient has correct armband on for positive identification. Bed in low position. Call ak1 light in reach. Side rails up X 1. 23:48 Jasiel Stallworth MD is Attending Physician. [facility] 23:55 Oscar Cobos RN is Primary Nurse. jd3 05/11 00:45 Inserted saline lock: 20 gauge in left antecubital area, using aseptic technique. Blood jd3 collected. 01:51 CT Head Brain wo Cont In Process Unspecified. EDMS 03:58 No provider procedures requiring assistance completed. IV discontinued, intact, jd3 bleeding controlled, No redness/swelling at site. Pressure dressing applied. Administered Medications: 01:15 Drug: Zofran 4 mg Route: IVP; Site: left antecubital; jd3 03:02 Follow up: Response: No adverse reaction jd3 01:16 Drug: morphine 2 mg {Note: RASS score of 0..} Route: IVP; Site: left antecubital; jd3 02:15 Follow up: Response: No adverse reaction; RASS: Alert and Calm (0) jd3 01:17 Drug: NS 0.9% 1000 ml Route: IV; Rate: 1 bolus; Site: left antecubital; jd3 03:01 Follow up: Response: No adverse reaction; IV Status: Completed infusion; IV Intake: jd3 1000ml 02:20 Not Given (Physician Discretion): NS 0.9% 1000 ml IV at 1 bolus Per protocol; 1000 mL jd3 bolus 03:01 Not Given (Physician Discretion): morphine 2 mg IVP once; (PAIN>8) RASS on ADMN: jd3 Combtv4, Very Agttd3, Agttd2, Rstlss1, AlertClm0, Drwsy-1, LtSdtn-2, ModSdtn-3, DpSdtn-4, UnArsble-5 x2 03:16 Drug: Rocephin 1 grams Route: IV; Rate: per protocol; Site: left antecubital; jd3 03:25 Follow up: Response: No adverse reaction; IV Status: Completed infusion jd3 Intake: 03:01 IV: 1000ml; Total: 1000ml. jd3 Outcome: 02:38 Discharge ordered by MD. jacques 03:59 Discharged to home ambulatory, with family. jd3 03:59 Condition: stable 03:59 Discharge instructions given to patient, Instructed on discharge instructions, follow up and referral plans. medication usage, Demonstrated understanding of instructions, follow-up care, medications, Prescriptions given X 4. 04:03 Patient left the ED. jd3 Signatures: Dispatcher [employer] EDMS Jasiel Stallworth MD MD cha Krenek, Amber RN RN Oscar Lamar RN RN Emy Castro
--- NOTE | 2019-05-11 02:40 | EDPHYS ---
Physician Documentation [facility] Name: Beronica Frazier Age: 24 yrs Sex: Female : 12/26/1994 Arrival Date: 05/10/2019 Time: 23:31 Bed 16 Private MD: ED Physician Jasiel Stallworth HPI: 05/11 00:23 This 24 yrs old Female presents to ER via Ambulatory with complaints of 16 sawyer WEEKS ,HEADACHE,DIZZINESS. 00:23 The patient complains of pain to the top of head, forehead, left frontal area, left sawyer side of the back of head, left occipital area, left base of the skull, right frontal area, right side of the back of head, right occipital area and right base of the skull. The patient describes the headache as aching. Onset: The symptoms/episode began/occurred yesterday. The estimated gestational age is 16 weeks. PRIMARY CLINICIAN: 05/10 23:42 LMP 01/15/2019, Verified, EDC 10/22/2019, Gestational age from LMP: 16 weeks 4 ak1 days 05/11 00:23 4, Full Term 2, Premature 0, 1, Living 2 sawyer Historical: - Allergies: 05/10 23:43 No Known Allergies; ak1 - Home Meds: 23:43 None [Active]; ak1 - PMHx: 23:43 None; ak1 - PSHx: 23:43 None; ak1 - Immunization history:: Adult Immunizations unknown. - Social history:: Smoking status: Patient/guardian denies using tobacco, the patient reports quitting approximately .2 years ago. - Ebola Screening: : No symptoms or risks identified at this time. - Family history:: not pertinent. ROS: 05/11 00:23 Constitutional: Negative for fever, chills, and weight loss, Eyes: Negative for injury, sawyer pain, redness, and discharge, ENT: Negative for injury, pain, and discharge, Neck: Negative for injury, pain, and swelling, Cardiovascular: Negative for chest pain, palpitations, and edema, Respiratory: Negative for shortness of breath, cough, wheezing, and pleuritic chest pain, Abdomen/GI: Negative for abdominal pain, nausea, vomiting, diarrhea, and constipation, Back: Negative for injury and pain, : Negative for injury, bleeding, discharge, and swelling, MS/Extremity: Negative for injury and deformity, Skin: Negative for injury, rash, and discoloration, Psych: Negative for depression, anxiety, suicide ideation, homicidal ideation, and hallucinations, Allergy/Immunology: Negative for hives, rash, and allergies, Endocrine: Negative for neck swelling, polydipsia, polyuria, polyphagia, and marked weight changes, Hematologic/Lymphatic: Negative for swollen nodes, abnormal bleeding, and unusual bruising. Neuro: Positive for headache, of the top of head, left frontal area, left side of the back of head, left occipital area, left base of the skull, right frontal area, right side of the back of head, right occipital area and right base of the skull. Exam: 00:23 Constitutional: This is a well developed, well nourished patient who is awake, alert, sawyer and in no acute distress. Head/Face: Normocephalic, atraumatic. Eyes: Pupils equal round and reactive to light, extra-ocular motions intact. Lids and lashes normal. Conjunctiva and sclera are non-icteric and not injected. Cornea within normal limits. Periorbital areas with no swelling, redness, or edema. ENT: Nares patent. No nasal discharge, no septal abnormalities noted. Tympanic membranes are normal and external auditory canals are clear. Oropharynx with no redness, swelling, or masses, exudates, or evidence of obstruction, uvula midline. Mucous membranes moist. Neck: Trachea midline, no thyromegaly or masses palpated, and no cervical lymphadenopathy. Supple, full range of motion without nuchal rigidity, or vertebral point tenderness. No Meningismus. Chest/axilla: Normal chest wall appearance and motion. Nontender with no deformity. No lesions are appreciated. Cardiovascular: Regular rate and rhythm with a normal S1 and S2. No gallops, murmurs, or rubs. Normal PMI, no JVD. No pulse deficits. Respiratory: Lungs have equal breath sounds bilaterally, clear to auscultation and percussion. No rales, rhonchi or wheezes noted. No increased work of breathing, no retractions or nasal flaring. Abdomen/GI: Soft, non-tender, with normal bowel sounds. No distension or tympany. No guarding or rebound. No evidence of tenderness throughout. Back: No spinal tenderness. No costovertebral tenderness. Full range of motion. Female : Normal external genitalia. Skin: Warm, dry with normal turgor. Normal color with no rashes, no lesions, and no evidence of cellulitis. MS/ Extremity: Pulses equal, no cyanosis. Neurovascular intact. Full, normal range of motion. Neuro: Awake and alert, GCS 15, oriented to person, place, time, and situation. Cranial nerves II-XII grossly intact. Motor strength 5/5 in all extremities. Sensory grossly intact. Cerebellar exam normal. Normal gait. Psych: Awake, alert, with orientation to person, place and time. Behavior, mood, and affect are within normal limits. 00:23 Abdomen/GI: Inspection: distension, Bowel sounds: normal, Palpation: abdomen is soft and non-tender, Liver: no appreciated palpable abnormalities, Hernia: not appreciated. 01:18 Neck: ROM/movement: is normal, no acute changes, Meningeal signs: are not present, [facility] Kernig's sign is negative, Brudzinski's sign is negative. Vital Signs: 05/10 23:42 BP 115 / 69; Pulse 93; Resp 18; Temp 98.3; Pulse Ox 98% on R/A; Weight 84.37 kg (R); ak1 Height 5 ft. 6 in. (167.64 cm) (R); Pain 7/10; 05/11 01:30 BP 98 / 50; Pulse 82; Resp 16 S; Pulse Ox 100% on R/A; jd3 03:17 BP 118 / 62; Pulse 79; Resp 16 S; Pulse Ox 100% on R/A; Pain 0/10; jd3 05/10 23:42 Body Mass Index 30.02 (84.37 kg, 167.64 cm) ak1 MDM: 05/10 23:48 Patient medically screened. [facility] 05/11 00:28 Data reviewed: vital signs, nurses notes, lab test result(s), radiologic studies, CT sawyer scan. 05/11 00:21 Order name: CBC with Diff; Complete Time: 01:22 [facility] 05/11 00:21 Order name: Comprehensive Metabolic Panel [facility] 05/11 00:21 Order name: CT Head Brain wo Cont [facility] 05/11 00:22 Order name: Urine Culture [facility] 05/11 00:21 Order name: Urine Dipstick-Ancillary (obtain specimen); Complete Time: 02:20 [facility] 05/11 00:21 Order name: FHT's; Complete Time: 03:16 sawyer Administered Medications: 01:15 Drug: Zofran 4 mg Route: IVP; Site: left antecubital; jd3 03:02 Follow up: Response: No adverse reaction jd3 01:16 Drug: morphine 2 mg {Note: RASS score of 0..} Route: IVP; Site: left antecubital; jd3 02:15 Follow up: Response: No adverse reaction; RASS: Alert and Calm (0) jd3 01:17 Drug: NS 0.9% 1000 ml Route: IV; Rate: 1 bolus; Site: left antecubital; jd3 03:01 Follow up: Response: No adverse reaction; IV Status: Completed infusion; IV Intake: jd3 1000ml 02:20 Not Given (Physician Discretion): NS 0.9% 1000 ml IV at 1 bolus Per protocol; 1000 mL jd3 bolus 03:01 Not Given (Physician Discretion): morphine 2 mg IVP once; (PAIN>8) RASS on ADMN: jd3 Combtv4, Very Agttd3, Agttd2, Rstlss1, AlertClm0, Drwsy-1, LtSdtn-2, ModSdtn-3, DpSdtn-4, UnArsble-5 x2 03:16 Drug: Rocephin 1 grams Route: IV; Rate: per protocol; Site: left antecubital; jd3 03:25 Follow up: Response: No adverse reaction; IV Status: Completed infusion jd3 Disposition: 05/11/19 02:38 Discharged to Home. Impression: Headache, related conditions, unspecified, second trimester, Urinary tract infection, site not specified. - Condition is Stable. - Discharge Instructions: General Headache Without Cause, Urinary Tract Infection, Adult, Urinary Tract Infection, Adult, Ybes-vb-Fskt, General Headache Without Cause, Wftg-is-Oqlk, Second Trimester of , Sdwt-yq-Iwnn. - Prescriptions for Vitamin 27- 0.8 mg Oral Tablet - take 1 tablet by ORAL route once daily; 30 tablet. Tylenol- Codeine #3 300-30 mg Oral Tablet - take 2 tablet by ORAL route every 6 hours As needed; 30 tablet. Zofran 4 mg Oral Tablet - take 1 tablet by ORAL route every 12 hours As needed; 14 tablet. Macrobid 100 mg Oral Capsule - take 1 capsule by ORAL route every 12 hours for 7 days; 14 capsule. - Medication Reconciliation Form, Thank You Letter, Antibiotic Education, Prescription Opioid Use form. - Follow up: Private Physician; When: 2 - 3 days; Reason: Recheck today's complaints, Continuance of care, Re-evaluation by your physician. - Problem is new. - Symptoms have improved. Signatures: Dispatcher [employer] EDJasiel Ochoa MD MD cha Krenek, Amber RN RN ak1 Oscar Cobos RN RN jd3 Corrections: (The following items were deleted from the chart) 04:03 02:38 05/11/2019 02:38 Discharged to Home. Impression: Headache; related jd3 conditions, unspecified, second trimester; Urinary tract infection, site not specified. Condition is Stable. Discharge Instructions: General Headache Without Cause, General Headache Without Cause, Sakp-it-Zwgs, Second Trimester of , Iqpz-sp-Lgad. Prescriptions for Vitamin 27-0.8 mg Oral Tablet - take 1 tablet by ORAL route once daily; 30 tablet, Tylenol-Codeine #3 300-30 mg Oral Tablet - take 2 tablet by ORAL route every 6 hours As needed; 30 tablet, Zofran 4 mg Oral Tablet - take 1 tablet by ORAL route every 12 hours As needed; 14 tablet. and Forms are Medication Reconciliation Form, Thank You Letter, Antibiotic Education, Prescription Opioid Use. Follow up: Private Physician; When: 2 - 3 days; Reason: Recheck today's complaints, Continuance of care, Re-evaluation by your physician. Problem is new. Symptoms have improved. sawyer
[2019-05-11] MEDS ORDERED: CEFTRIAXONE/SWI 1gm 1 GM/10 ML SYR ONE (03:04)
--- NOTE | 2019-05-11 09:47 | RAD REPORT ---
EXAM DESCRIPTION: Head Brain Wo Cont CLINICAL HISTORY: HEADACHE COMPARISON: None. TECHNIQUE: CT HEAD WITHOUT IV CONTRAST on 05/11/2019 12:21 AM CDT This exam was performed according to our departmental dose-optimization program, which includes autom ated exposure control, adjustment of the mA and/or kV according to patient size and/or use of iterati ve reconstruction technique. FINDINGS: There is no acute hemorrhage, mass effect or midline shift. Whittington-white differentiation is preserved. There is no hydrocephalus. There is no significant volume loss for age. 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 The calvarium is intact. Orbits and globes are unremarkable. The paranasal sinuses are clear. Mastoid air cells are clear. IMPRESSION: No acute intracranial findings. Electronically signed by: Michael Stern MD 05/11/2019 1:49 AM CDT Due to temporary technical issues with the PACS/Fluency reporting system, reports are being signed by the in house radiologist as a courtesy to ensure prompt reporting. The interpreting radiologist is f ully responsible for the content of the report.
== END 2019-05-11 04:03 | disposition home or self-care (01) ==
LOC: ER 23:27
DX: O23.42 Unspecified infection of urinary tract in pregnancy, second trimester (principal); Z3A.16 16 weeks gestation of pregnancy
CPT/HCPCS: 36415; 70450; 80053; 85025; 87086; 87088; 96361; 96374; 96375; 99284; J0696; J2270; J2405; J7030